=== PATIENT | male | born 1970 | race Caucasian/White ===

== ENCOUNTER 2016-12-12 15:49 | Emergency (ER) | payer MEDICARE, OTHER ==
[2016-12-12] MEDS ORDERED: Aspirin 81 MG Tab.Chew PO ONE (16:30)
[2016-12-12] MEDS ORDERED: Sodium Chloride 0.9% 1,000 ML IV SCH (16:30)
--- NOTE | 2016-12-12 16:39 | EDM.PDOC ---
ED HPI GENERAL MEDICAL PROBLEM - General Chief Complaint: Drug or Alcohol Abuse Stated Complaint: EVAL Time Seen by Provider: 12/12/16 16:30 Source of Information: Reports: Patient History Limitations: Reports: No Limitations - History of Present Illness INITIAL COMMENTS - FREE TEXT/NARRATIVE: Praful is a 46-year-old male with a history of alcohol dependency, nicotine dependence, and hypertension who presents to the emergency department today really not feeling well after having large amounts of vodka last night followed by 6 sleeping pills that he purchased [id number]. Patient is currently in a day treatment program for his alcohol abuse and up into last night was sober for the last month. Patient endorses stomach pain, leg cramping, diaphoresis, tremulousness and chest pain/shortness of breath. Patient is more concerned about the chest pain and shortness of breath as he has not experienced these in the past. Patient has gone through alcohol withdrawal in the past, he does endorse a seizure history with these. Patient denies any injury or trauma. Patient denies any other drug use. Patient does report that he plans to go back to his day treatment program after being medically evaluated and treated here today. Onset: Today - Related Data Allergies Allergy/AdvReac Type Severity Reaction Status Date / Time No Known Allergies Allergy Verified 12/12/16 16:06 Home Meds: Home Meds Escitalopram Oxalate [Escitalopram Oxalate] 12/12/16 [History] Gabapentin [Neurontin] 12/12/16 [History] Nefazodone [Serzone] 12/12/16 [History] Pantoprazole Sodium [Pantoprazole Sodium] 12/12/16 [History] Topiramate [Topiramate] 12/12/16 [History] amLODIPine [Norvasc] 12/12/16 [History] levETIRAcetam [Keppra] 12/12/16 [History] traZODone HCl [Trazodone HCl] 12/12/16 [History] Past Medical History Neurological History: Reports: Head Trauma Social & Family History - Tobacco Use Smoking Status *Q: Current Every Day Smoker Years of Tobacco use: 35 Packs/Tins Daily: 1 - Alcohol Use Time of Last Drink: 00:00 - Recreational Drug Use Recreational Drug Use: No ED ROS GENERAL - Review of Systems Review Of Systems: ROS reveals no pertinent complaints other than HPI. - Physical Exam Exam: See Below Exam Limited By: No Limitations General Appearance: Alert, WD/WN, Anxious Eye Exam: Bilateral Eye: PERRL Ears: Normal External Exam Throat/Mouth: Normal Inspection, Normal Oropharynx Head Exam: Atraumatic Respiratory/Chest: No Respiratory Distress, Lungs Clear Cardiovascular: Normal Peripheral Pulses, Regular Rate, Rhythm, No Murmur GI/Abdominal: Normal Bowel Sounds, Soft, Non-Tender, No Distention Neuro Exam (Abbreviated): Alert, Oriented, CN II-XII Intact, Normal Cognition, No Motor/Sensory Deficits Back Exam: Normal Inspection Extremities: Normal Inspection Psychiatric: Anxious Skin Exam: Warm, Dry Comments: Patient does have findings on her tremors from his withdrawal, he has mild tongue fasciculations, current CIWA score is 12. EKG INTERPRETATION EKG Date: 12/12/16 Time: 16:40 Rhythm: NSR [place]: Normal P-Wave: Present QRS: Normal ST-T: Normal QT: Normal Comparison: NA - No Prior EKG Course - Vital Signs Last Recorded V/S: Last Vital Signs Temp 36.9 C 12/12/16 16:19 Pulse 91 12/12/16 16:19 Resp 14 12/12/16 16:19 BP 166/101 H 12/12/16 16:19 Pulse Ox Praful is a 46-year-old male with a history of hypertension and alcohol abuse who presents to the emergency department today with multiple complaints. Patient feels that he is in acute alcohol withdrawal after having a large amount of vodka yesterday. Patient also endorses shortness of breath and chest pain which is new for him. Patient is a smoker. Patient denies any other drug use. Peripheral IV was established and patient was given IV Valium here in the emergency department with a liter of normal saline. Blood work was obtained, white count was normal at 6.4, hemoglobin is 16.2. Platelet count is mildly low at 134. Patient's electrolytes came back with a mildly low sodium of 139 and a potassium of 3.1, this was replaced orally. Patient's anion gap is 14.1. Glucose is mildly elevated at 108 and calcium is mildly low at 8.1. AST is mildly elevated at 51, ALTs within normal limits and alkaline phosphatase returns mildly elevated at 227. Initial troponin is negative at 0.034, d-dimer is elevated at 592. Given patient's elevated d-dimer in light of his risk factors, a CT angio was obtained to rule out a PE and returns fortunately negative for any PE. Patient reports he is feeling much better, he is still mildly tremulous, CIWA score currently is 3. Patient reports he feels he is safe to be discharged back to his treatment facility, I will give him a dose of oral Valium here prior to discharge which will last longer of course than the intravenous form. I encouraged patient to continue with his alcohol treatment program and reasons to return to the emergency department were discussed in detail. Patient was agreeable to plan of care and was discharged in stable condition with a friend driving. - Orders/Labs/Meds Orders: Active Orders 24 hr Category Date Time Status EKG Documentation Completion [RC] ASDIRECTED Care 12/12/16 16:29 Active Peripheral IV Care [RC] . DIRECTED Care 12/12/16 16:29 Active Ang Chest [CT] Stat Exams 12/12/16 17:26 Taken Iopamidol [Isovue-370 (76%)] Med 12/12/16 17:30 Active 100 ml IV . DIRECTED Sodium Chloride 0.9% [Normal Saline] 1,000 ml Med 12/12/16 16:30 Active IV ASDIRECTED Sodium Chloride 0.9% [Normal Saline] 100 ml Med 12/12/16 17:30 Active IV ASDIRECTED Sodium Chloride 0.9% [Saline Flush] Med 12/12/16 16:29 Active 10 ml FLUSH ASDIRECTED PRN Peripheral IV Insertion Adult [OM.PC] Routine Oth 12/12/16 16:29 Ordered EKG 12 Lead [EK] Stat Ther 12/12/16 16:29 Ordered Medication Orders Sodium Chloride (Normal Saline) 1,000 mls @ 999 mls/hr IV ASDIRECTED WENDY Last Admin: 12/12/16 16:56 Dose: 999 mls/hr Sodium Chloride (Normal Saline) 100 mls @ 3 mls/sec IV ASDIRECTED WENDY Last Admin: 12/12/16 17:47 Dose: 3 mls/sec Iopamidol (Isovue-370 (76%)) 100 ml IV . DIRECTED WENDY Last Admin: 12/12/16 17:48 Dose: 100 ml Sodium Chloride (Saline Flush) 10 ml FLUSH ASDIRECTED PRN PRN Reason: Keep Vein Open Last Admin: 12/12/16 17:47 Dose: 10 ml Admin: 12/12/16 16:55 Dose: 10 ml Labs: Laboratory Tests 12/12/16 12/12/16 12/12/16 Range/Units 16:47 16:47 16:47 WBC 6.4 (4.5-11.0) K/uL RBC 5.04 (4.30-5.90) M/uL Hgb 16.2 H (12.0-15.0) g/dL Hct 47.0 (40.0-54.0) % MCV 93 (80-98) fL MCH 32 H (27-31) pg MCHC 35 (32-36) % Plt Count 134 L (150-400) K/uL Neut % (Auto) 52 (36-66) % Lymph % (Auto) 28 (24-44) % [place] % (Auto) 18 H (2-6) % Eos % (Auto) 1 L (2-4) % Baso % (Auto) 1 (0-1) % D-Dimer, Quantitative 592 H (0.0-400.0) ng/mL Sodium 139 L (140-148) mmol/L Potassium 3.1 L (3.6-5.2) mmol/L Chloride 102 (100-108) mmol/L Carbon Dioxide 26 (21-32) mmol/L Anion Gap 14.1 H (5.0-14.0) mmol/L BUN 15 (7-18) mg/dL Creatinine 1.1 (0.8-1.3) mg/dL Est Cr Clr Drug Dosing 95.84 mL/min Estimated GFR (MDRD) > 60 (>60) Glucose 108 H (74-106) mg/dL Calcium 8.1 L (8.5-10.1) mg/dL Total Bilirubin 0.9 (0.2-1.0) mg/dL AST 51 H (15-37) U/L ALT 54 (12-78) U/L Alkaline Phosphatase 227 H (46-116) U/L Troponin I 0.034 (0.000-0.056) ng/mL Total Protein 8.3 H (6.4-8.2) g/dL Albumin 3.5 (3.4-5.0) g/dL Globulin 4.8 H (2.3-3.5) g/dL Albumin/Globulin Ratio 0.7 L (1.2-2.2) Meds: Medications Generic Name Dose Route Start Last Admin Trade Name Freq PRN Reason Stop Dose Admin Sodium Chloride 1,000 mls @ 999 mls/hr 12/12/16 16:30 12/12/16 16:56 Normal Saline IV 999 mls/hr ASDIRECTED WENDY Administration Sodium Chloride 100 mls @ 3 mls/sec 12/12/16 17:30 12/12/16 17:47 Normal Saline IV 3 mls/sec ASDIRECTED WENDY Administration Iopamidol 100 ml 12/12/16 17:30 12/12/16 17:48 Isovue-370 (76%) IV 100 ml . DIRECTED WENDY Administration Sodium Chloride 10 ml 12/12/16 16:29 12/12/16 17:47 Saline Flush FLUSH 10 ml ASDIRECTED PRN Administration Keep Vein Open Discontinued Medications Generic Name Dose Route Start Last Admin Trade Name Freq PRN Reason Stop Dose Admin Aspirin 324 mg 12/12/16 16:30 12/12/16 16:55 Aspirin PO 12/12/16 16:31 324 mg ONETIME ONE Administration Diazepam 10 mg 12/12/16 16:31 12/12/16 16:55 Valium IVPUSH 12/12/16 16:32 10 mg ONETIME ONE Administration Diazepam 10 mg 12/12/16 19:02 12/12/16 19:06 Valium. PO 12/12/16 19:03 10 mg ONETIME ONE Administration Potassium Chloride 40 meq 12/12/16 17:28 12/12/16 18:02 Klor-Con M20 PO 12/12/16 17:29 40 meq ONETIME ONE Administration Departure - Departure Time of Disposition: 19:30 Disposition: Home, Self-Care 01 Condition: Good Clinical Impression: Alcohol abuse Alcohol withdrawal syndrome Qualifiers: Complication of substance-induced condition: uncomplicated Qualified Code(s): F10.230 - Alcohol dependence with withdrawal, uncomplicated - Discharge Information Instructions: Alcohol Use Disorder Referrals: PCP,None [Primary Care Provider] - Forms: ED Department Discharge Additional Instructions: Make sure you stay well hydrated. Avoid any further alcohol. Continue with your alcohol treatment program. Good luck with your treatment Praful, It was nice meeting you. I wish you well. If you develop any complications or worrisome symptoms, please return to the ED. - My Orders Last 24 Hours: My Active Orders 12/12/16 16:29 EKG Documentation Completion [RC] ASDIRECTED Peripheral IV Care [RC] . DIRECTED Sodium Chloride 0.9% [Saline Flush] 10 ml FLUSH ASDIRECTED PRN Peripheral IV Insertion Adult [OM.PC] Routine EKG 12 Lead [EK] Stat 12/12/16 16:30 Sodium Chloride 0.9% [Normal Saline] 1,000 ml IV ASDIRECTED 12/12/16 17:26 Ang Chest [CT] Stat 12/12/16 17:30 Iopamidol [Isovue-370 (76%)] 100 ml IV . DIRECTED Sodium Chloride 0.9% [Normal Saline] 100 ml IV ASDIRECTED - Assessment/Plan Last 24 Hours: My Active Orders 12/12/16 16:29 EKG Documentation Completion [RC] ASDIRECTED Peripheral IV Care [RC] . DIRECTED Sodium Chloride 0.9% [Saline Flush] 10 ml FLUSH ASDIRECTED PRN Peripheral IV Insertion Adult [OM.PC] Routine EKG 12 Lead [EK] Stat 12/12/16 16:30 Sodium Chloride 0.9% [Normal Saline] 1,000 ml IV ASDIRECTED 12/12/16 17:26 Ang Chest [CT] Stat 12/12/16 17:30 Iopamidol [Isovue-370 (76%)] 100 ml IV . DIRECTED Sodium Chloride 0.9% [Normal Saline] 100 ml IV ASDIRECTED
[2016-12-12] MEDS: Sodium Chloride 0.9% 10 ML Syringe FLUSH PRN ×2 (16:55→17:47)
[2016-12-12] MEDS ORDERED: Potassium Chloride 20 MEQ Tab.ER PO ONE (17:28)
[2016-12-12] MEDS ORDERED: Iopamidol 755 Mg/ML 100 ML Bottle IV SCH (17:30)
[2016-12-12] MEDS ORDERED: Sodium Chloride 0.9% 100 ML IV SCH (17:30)
[2016-12-12] MEDS ORDERED: Diazepam 5 MG Tab PO ONE (19:02)
== END 2016-12-12 19:13 | disposition home or self-care (01) ==
LOC: JP.ED 15:49
DX: F10.230 Alcohol dependence with withdrawal, uncomplicated (principal); F17.210 Nicotine dependence, cigarettes, uncomplicated; I10 Essential (primary) hypertension
CPT/HCPCS: 36415; 71275; 80053; 84484; 85025; 85379; 93005; 93010; 96361; 96374; 99284; A9270; J3360; J7030; J7040; J7050; Q9967